=== PATIENT | female | born 1935 ===

== ENCOUNTER 2018-05-05 12:00 | Inpatient (IN) | payer OTHER ==
[~2018-05-05] VITALS: Ht 149.9 cm; Wt 63.5 kg
[2018-05-05] MEDS ORDERED: ZOCOR20 MG PO (13:26)
[2018-05-05] MEDS ORDERED: NORVASC2.5 MG PO (13:26)
[2018-05-05] MEDS ORDERED: PRILOSE PO (13:27)
[2018-05-05] MEDS ORDERED: SYNTHROID50 MCG PO (13:27)
[2018-05-05] MEDS ORDERED: COZAAR100 MG PO (13:27)
[2018-05-12] MEDS ORDERED: OMEPRAZOLE40 MG PO (09:11)
[2018-05-13] MEDS ORDERED: GABAPENTIN800 MG PO (14:26)
[2018-05-13] MEDS ORDERED: DOCUSATE SODIU100 MG PO (14:26)
[2018-05-13] MEDS ORDERED: AMOX-CLAV 875-1 EACH PO (14:27)
[2018-05-13] MEDS ORDERED: CLONAZEPAM0.5 MG PO (14:27)
[2018-05-13] MEDS ORDERED: PERCOCET 5-3251 EACH PO (14:27)
== END 2018-05-14 20:00 | DRG 460 ==
LOC: SURH 05-11 06:00 → O/R 05-11 06:00 → SURH 05-11 12:00 → O/R 05-13 17:41 → SURH 05-14 11:37 → O/R 05-14 11:37 → SURH 05-14 20:00
PROVIDERS: ADMIT Orthopaedic Surgery Orthopaedic Surgery of the Spine
PROC: 0ST40ZZ Resection of Lumbosacral Disc, Open Approach (ICD-10-PCS; 2018-05-13)
PROC: 0SG30AJ Fusion of Lumbosacral Joint with Interbody Fusion Device, Posterior Approach, Anterior Column, Open Approach (ICD-10-PCS; 2018-05-13)
PROC: 07DS3ZZ Extraction of Vertebral Bone Marrow, Percutaneous Approach (ICD-10-PCS; 2018-05-13)
PROC: 4A12X4Z Monitoring of Cardiac Electrical Activity, External Approach (ICD-10-PCS; 2018-05-13)
PROC: 0SG30A0 Fusion of Lumbosacral Joint with Interbody Fusion Device, Anterior Approach, Anterior Column, Open Approach (ICD-10-PCS; principal; 2018-05-13 16:15)
DX: M48.061 Spinal stenosis, lumbar region without neurogenic claudication (principal); M51.17 Intervertebral disc disorders with radiculopathy, lumbosacral region; M43.17 Spondylolisthesis, lumbosacral region; M48.07 Spinal stenosis, lumbosacral region; I10 Essential (primary) hypertension